=== PATIENT | male | born 1950 | race Caucasian/White ===

== ENCOUNTER → 2018-04-29 07:35 | Outpatient (CLI) | payer MEDICARE, OTHER, SELFPAY ==
--- NOTE | 2018-04-29 07:42 | DI.US.S_ITS ---
PROCEDURE: US ABD AORTA ANEURYSM SCREEN INDICATIONS: AAA SCREEN TECHNIQUE: Real time scanning was performed of the aorta and iliac arteries, with image documentation. COMPARISON: None. FINDINGS: Aorta: Proximal aortic diameter measures 2.2 cm. Mid-aorta measures 1.9 cm. Distal aortic diameter is 1.5 cm. Iliac arteries: Right common iliac artery measures 1.2 cm. Left common iliac artery measures 1.2 cm. IMPRESSION: No aneurysm found. No dissection identified. No atherosclerotic stenosis suspected within the aorta. Dictated by: Félix Galloway M.D. on 04/29/2018 at 8:09 Approved by: Félix Galloway M.D. on 04/29/2018 at 8:10
== END ==
PROVIDERS: PCP Family Medicine; Visit Provider Family Medicine
DX: Z13.6 Encounter for screening for cardiovascular disorders (principal)
CPT/HCPCS: 76706

== ENCOUNTER → 2020-05-28 16:51 | Outpatient (CLI) | payer MEDICARE, OTHER, SELFPAY ==
[2020-05-28] MEDS: COVID-19 VACC #1, MRNA(MOD) 100 MCG/0.5 ML VIAL IM (17:05)
== END ==
PROVIDERS: PCP Family Medicine; Visit Provider Internal Medicine
DX: Z23 Encounter for immunization (principal)
CPT/HCPCS: 0011A; 91301

== ENCOUNTER → 2020-06-26 11:02 | Outpatient (CLI) | payer MEDICARE, OTHER, SELFPAY ==
[2020-06-26] MEDS: COVID-19 VACC #2, MRNA(MOD) 100 MCG/0.5 ML VIAL IM (11:11)
== END ==
PROVIDERS: PCP Family Medicine; Visit Provider Internal Medicine
DX: Z23 Encounter for immunization (principal)
CPT/HCPCS: 0012A; 91301

== ENCOUNTER → 2020-08-22 09:06 | Outpatient (CLI) | payer MEDICARE, OTHER, SELFPAY ==
--- NOTE | 2020-08-22 | DI.ECHO.S_ITS ---
[facility] +---------+ [facility] +---------+ : : [address] : [address] : : : : [id number] : : : : Phone: [phone]+ Echocardiogram Report + + :Name: CAL GARCIA Study Date: 08/22/2020 Height: 69 in : :[facility] ReadingLocation: Weight: 150 lb : : Gender: Male BSA: 1.8 m2 : :: 1950 Age: 70 yrs BP: 122/74 mmHg: :Reason For Study: NEAR SYNCOPE : :Ordering Physician: ALIN, : :HECTOR Performed By: Demetra Howard : :Referring: HECTOR OGDEN : + + Interpretation Summary 1) Normal left ventricular thickness, size, wall motion, and systolic function (EF 55-60%). 2) Normal right ventricular size and function. 3) There is mild aortic regurgitation. 4) The aortic root is mildly dilated at 4.0cm. The ascending aorta is mildly enlarged at 4.1cm. 5) No prior Echo available for comparison. Procedure: A two-dimensional transthoracic echocardiogram with color flow and Doppler was performed. The study quality was technically adequate. There is no prior echocardiogram noted for this patient. The patient was in sinus rhythm with heart rates between 63-76 bpm during the exam. Left Ventricle: The left ventricle is normal in size and wall thickness. The ejection fraction is estimated to be 55-60%. Left ventricular systolic function appears normal without focal wall motion abnormalities. Diastolic parameters suggest probable normal left ventricular diastolic function and normal filling pressures. Right Ventricle: The right ventricle is normal in size and function. Atria: The left atrium is mildly dilated. Right atrial size is normal. There is no Doppler evidence for an interatrial shunt. Mitral Valve: The mitral valve is normal in structure and function. There is mild mitral regurgitation. Aortic Valve: The aortic valve is trileaflet. The aortic valve opens well. There is no aortic valve stenosis. There is mild aortic regurgitation. Tricuspid Valve: The tricuspid valve is normal in structure and function. The right ventricular systolic pressure is estimated to be at least 23 mmHg based on an estimated right atrial pressure of 3 mm Hg. There is mild tricuspid regurgitation. Pulmonic Valve: The pulmonic valve leaflets are thin and pliable; valve motion is normal. There is trace pulmonic regurgitation. Great Vessels: The aortic root is mildly dilated. The ascending aorta is mildly enlarged. The IVC is of normal diameter and collapses greater than 50% with a sniff. This suggests a low right atrial pressure of 3 mm Hg. Pericardium/ Pleura There is no pericardial effusion. There is no pleural effusion. MMode/2D Measurements & Calculations LVIDd: 4.9 cm LVOT diam: 2.5 cm LVIDs: 3.1 cm Ao root diam: 4.0 cm FS: 37.2 % asc Aorta Diam: 4.1 cm EPSS: 0.68 cm Ao Arch Diam (Prox Trans): 3.6 cm IVSd: 0.86 cm LVPWd: 0.81 cm LV phillips. diameter/BSA (cm/m^2): 2.7 LV sys. diameter/BSA (cm/m^2): 1.7 LA A2 area: 22.7 cm2 RA long axis: 5.0 cm LA A4 area: 14.6 cm2 RA area: 15.1 cm2 LA length (vol): 4.6 cm RA vol: 38.5 ml LA vol: 61.7 ml RA : 21.1 ml/m2 LA vol index: 33.8 ml/m2 IVC diam: 1.2 cm RVD1 (basal): 2.3 cm TAPSE: 1.9 cm Doppler Measurements & Calculations Ao V2 max: 136.6 cm/sec LVOT Max Darnell: 95.8 cm/sec Ao V2 mean: 90.7 cm/sec LV V1 max P.7 mmHg Ao max P.5 mmHg LV V1 VTI: 19.3 cm Ao mean P.7 mmHg RYLEE(I,D): 3.5 cm2 Ao V2 VTI: 26.4 cm RYLEE(V,D): 3.4 cm2 sev ratio: 0.73 RYLEE indexed to BSA (cm^2/m^2): 1.9 MV E max darnell: 62.5 cm/sec TR max darnell: 225.5 cm/sec MV A max darnell: 74.6 cm/sec TR max P.3 mmHg MV E/A: 0.84 PA V2 max: 108.3 cm/sec Med Peak E' Darnell: 9.8 cm/sec PA V2 mean: 80.7 cm/sec E/E' med: 6.4 PA mean P.8 mmHg Lat Peak E' Darnell: 8.4 cm/sec PA pr(Accel): 36.6 mmHg E/E' lat: 7.5 E/e' average: 6.9 MV dec time: 0.23 sec SV(LVOT): 93.4 ml Reading Physician:02:03 PM
== END ==
PROVIDERS: PCP Family Medicine; Referring Provider Family Medicine; Visit Provider Family Medicine
DX: I08.3 Combined rheumatic disorders of mitral, aortic and tricuspid valves (principal); I77.810 Thoracic aortic ectasia; R55 Syncope and collapse
CPT/HCPCS: 93306

== ENCOUNTER → 2020-09-17 09:02 | Outpatient (CLI) | payer MEDICARE, OTHER, SELFPAY ==
--- NOTE | 2020-09-17 | DI.RAD.S_ITS ---
PROCEDURE: FL BARIUM SWALLOW W SPEECH INDICATIONS: DYSPHAGIA COMPARISON: TECHNIQUE: Examination was conducted in conjunction with speech pathology per standard protocol. In the lateral projection, filming was performed of the patient swallowing. AP projection filming may also be performed with patient swallowing. COMPARISON: [facility], , ECHO DOPPLER COMPLETE, 08/22/2020, 9:20. FINDINGS: Function: The oral preparatory phase appears normal, with proper containment. The subsequent oral propulsive phase, pharyngeal phase, and esophageal phase of swallowing also appear normal with all proffered substances. No laryngotracheal penetration or aspiration. No pathologic vallecular pooling. There is mild obstruction of a calibrated barium pill at the GE junction. Morphology: No cricopharyngeal bar is identified. No cervical esophageal webs. No Zenker's diverticulum. No strictures. IMPRESSION: 1. No trachea laryngeal penetration or aspiration. Please see speech pathologist's report for detail. 2. Mild obstruction of a calibrated barium pill at the GE junction. A esophagram or upper endoscopy is suggested for follow-up. Dictated by: Leslye Garcia M.D. on 09/17/2020 at 10:25 Approved by: Leslye Garcia M.D. on 09/17/2020 at 10:26
--- NOTE | 2020-09-18 10:29 | ST.SWALLOW ---
Visit Care Team Role Provider Type Ronit Ellis MD Referring Provider Physician Specialty: [facility] Practice Address: [address] [place] [address], [place], [address] Email: [email or web address] Tatiana Barreto MD Attending Provider Physician Primary Care Provider Specialty: 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 Barreto Reason for Referral dysphagia Setting Setting Outpatient Care Patient Information Identification Type Name,Date of Patient History Pt was seen for a Modified Barium Swallow Study (MBSS) at the referral of Dr. Barreto. According to the pt, he has been experiencing difficulty with swallowing pills, popcorn hulls and dry foods/meats. Additionally, he reported a sensation of a meal remaining in his esophagus and filling up to the point he can't eat more food. This has occurred a few times over the past 5 years. He denied choking/ coughing, but did report that there are times things go down the wrong way. Subjective Observations Pt was seated in the fluoroscopy chair. Instructions and procedures were described for him. He indicated that he understood and agreed to proceed. Patient Positioning Position View Lat-A/P Imaging Lateral View Textures Administered Trials Presented Thin Liquid via Spoon,Thin Liquid via Cup,Pudding Thick Liquid via Spoon,Regular Textures Oral Phase Source: MBSIMP (TM) (C) Bolus Specific Scoring Grid Lip Closure WFL Tongue Control During Bolus Hold WFL Bolus Prep/Mastication WFL Bolus Transport/Lingual Motion WFL A/P Lingual Propulsion Delay No Oral Residue WFL Residue Clearing WFL Nasal Regurgitation No Additional Oral Phase Observations Structures were WFL for strength and mastication. Adequate dentition in good hygiene. Pharyngeal Phase Source: MBSIMP (TM) (C) Bolus Specific Scoring Grid Delayed Initiation of Pharyngeal Swallow No Soft Palate Elevation Mild Impairment Tongue Base Strength/Range of Motion Mild Impairment Residue Along the Tongue Base Yes Clearance of Residue Along Tongue Base Mild Impairment Laryngeal Elevation Mild Impairment Anterior Hyoid Movement Mild Impairment Epiglottic Range of Motion Mild Impairment Vallecular Residue Yes Clearance of Vallecular Residue Mild Impairment Laryngeal Vestibular Closure Mild Impairment Pharyngeal Stripping Wave Mild Impairment Posterior Pharyngeal Wall Residue Yes Clearance of Posterior Pharyngeal Wall Mild Impairment Residue Upper Esophageal Sphincter Opening Minimal Impairment Residue in the Pyriform Sinuses Yes Clearance of Residue in the Pyriform Mild Impairment Sinuses Esophageal Clearance Upright Position Minimal Impairment Pharyngoesophageal Backflow Observed No Additional Pharyngeal Phase Observations No laryngopharyngeal contact was made indicating tongue base and medial pharyngeal constrictor weakness. This limited the hyolaryngeal elevation and movement, thereby affecting the inversion of the epiglottis and the laryngeal seal. The epiglottis was noted to be horizontal for small bolus amounts. With larger bolus sizes, the epiglottis did invert; however the laryngeal seal was weak. Flash penetration was observed x4 into the laryngeal vestibule without residue. Pharyngeal pooling was observed at the tongue base, the valeculla, the pyriform sinuses, and the posterior pharyngeal wall. Subsequent swallows (dry) reduced but did not eliminate the pharyngeal pooling. No aspiration was observed. A/P View Textures Administered Trials Presented Thin Liquid via Cup,Regular Textures,Barium Tablet A/P View Observations Pharyngeal Contraction Minimal Impairment Residue Observed Valleculae Right,Valleculae Left,Pyriform Sinus Right, Pyriform Sinus Left Esophageal Function Slowed Clearing,Stasis Esophageal Clearance Upright Position Mild Impairment Additional Observations An esophageal screening was performed. Pharyngeal dysmotility and stasis of the tablet were observed. The tablet (11mm) remained at the LES for several seconds. Swallows of water and thin barium did not move the tablet , but went around it. The tablet eventually moved into the stomach. Clinical Impressions Dysphagia Type pharyngeal dysphagia; esophageal dysphagia Findings The pt presented with mild pharyngeal phase dysphagia. Based on the pt's description of his symptoms, is is likely that he is experiencing esophageal dysphagia with reduced motility and stasis at the LES delaying entry into the stomach. As he stated, he feels as though his esophagus is filling up, as he consumes foods such as dry meats or breads. GI referral is recommended for barium swallow to r/o stricture. * Finally, it should be noted that there appeared to be a small tear- shaped bulge of tissue, resembling a polyp, located on the anterior of the esophagus near the sternal area. This tissue seemed to be located outside of the esophagus and moved up and down with the esophagus across all trials. Patient Appropriate for Therapy No Recommendations Treatment Plan Recommended Referrals Primary Care Physician,GI Consult
== END ==
PROVIDERS: PCP Family Medicine; Referring Provider Student in an Organized Health Care Education/Training Program; Visit Provider Family Medicine
DX: R13.10 Dysphagia, unspecified (principal)
CPT/HCPCS: 74230; 92611

== ENCOUNTER → 2020-10-29 10:43 | Outpatient (CLI) | payer MEDICARE, OTHER, SELFPAY ==
[2020-10-29 14:12] LABS: COVID19 -Nasal RAPID Negative (Negative)
--- NOTE | 2020-10-29 15:24 | PM.TREADMILL ---
Cardiac Stress Test Report Referral & Results Date Patient Seen: 10/29/20 Time Patient Seen: 15:24 Requesting provider: Tatiana Barreto Indication: syncope and collapse Rest ECG: Sinus rhythm Procedure Note: Standard Hector protocol, 7:21, 8.1 METS Fair exercise capacity, DALLIN -3% Normal hemodynamic response to exercise No chest pain or anginal symptoms No significant ST changes at peak exercise Rare PVC Impression: Normal exercise stress test Please note: Actual ECG tracings can be found in the PACS system.
--- NOTE | 2020-10-29 18:59 | DI.NM.S_ITS ---
DATE OF SERVICE: PROCEDURE: Exercise perfusion study. DATE OF STUDY: October 29, 2020 INDICATIONS: Syncope, near-syncope, hyperlipidemia. RADIOPHARMACEUTICAL: 26.7 millicurie technetium-99m Myoview IV was injected at stress and 12.3 millicurie technetium-99m Myoview IV was injected at rest. CARDIAC STRESS: The patient underwent exercise perfusion study under the supervision of an attending staff. He exercised on Hector protocol for 7 minutes and 20 seconds, achieved 92% of target heart rate, normal blood pressure response, DALLIN -3% and 8.1 METS of workload. Baseline blood pressure 120/70 mmHg. Peak blood pressure 160/80 mmHg. Baseline EKG revealed sinus rhythm. During stress there were no convincing ischemic changes. Rare PVCs and PACs were seen. No chest pain or anginal symptoms. The patient felt fatigue. RAW DATA: There is increased subdiaphragmatic activity. GATED STUDY: Resting LV ejection fraction 73% and stress LV ejection fraction 63% without any obvious regional wall motion abnormalities. Resting end- diastolic volume 101 mL. TID ratio 1.24 which is abnormal. Lung/heart ratio 0.40, which is within normal limits. MYOCARDIAL PERFUSION SCAN: Stress supine, resting supine and stress prone images were compared to each other. Stress supine and resting supine images revealed small size, mildly decreased perfusion of inferior wall extending into the inferoapex, as well as basal inferior septum which got significantly resolved during prone images suggestive of tissue attenuation artifact. No convincing ischemia or infarction pattern. Based on perfusion scan. CONCLUSION: As far as perfusion scan is concerned, there is no significant perfusion defect during stress prone images. There was evidence of diaphragmatic attenuation artifact, which got resolved during prone images. The patient has good exercise tolerance. He walked on Hector protocol for 7 minutes and 21 seconds. No ischemic EKG changes. Normal hemodynamic response. No chest pain. However, the patient has abnormal transient ischemic dilatation. TID ratio 1.24 which is abnormal. Resting left ventricular ejection fraction 63%, which is less than resting ejection fraction of 73%. Transient ischemic dilatation represents left main or multivessel coronary artery disease. Balanced ischemia can cause normal myocardial perfusion. Correlate clinically and if pre test probability of coronary artery disease is high, consider left heart catheterization or CT coronary angiogram for further evaluation. Talat Montoya - CLAIM PROCESSING SPECIALIST/chele/cs doc#: [id number]/job#: [id number] dd: 10/29/2020 17:23:00 dt: 10/29/2020 18:49:00 DICTATING MD/COPIES TO: Brown Teixeira MD; Tatiana Barreto MD COPIES MNE: EILEEN;
== END ==
PROVIDERS: PCP Family Medicine; Referring Provider Family Medicine; Visit Provider Family Medicine
DX: R55 Syncope and collapse (principal); E78.5 Hyperlipidemia, unspecified
CPT/HCPCS: 78452; 87635; 93017; A9502

== ENCOUNTER → 2022-02-05 13:43 | Outpatient (CLI) | payer MEDICARE, OTHER, SELFPAY ==
--- NOTE | 2022-02-05 13:45 | DI.ECHO.S_ITS ---
[place] +---------+ Hospital +---------+ : : [address] : [address] : [address] : : : : [id number] : : : : Phone: [phone] +---------+ Echocardiogram Report + + :Name: CAL GARCIA Study Date: 02/05/2022 Height: 69 in : :[facility] ReadingLocation: Weight: 155 lb : : Gender: Male BSA: 1.9 m2 : :: 1950 Age: 71 yrs BP: 146/90 mmHg: :Reason For Study: Aortic, Ascending Aneurysm : :Ordering Physician: ALIN, : :HECTOR Performed By: Hang Lambert : :Referring: HECTOR OGDEN : + + Interpretation Summary The ejection fraction is estimated to be 55-60%. There is mild aortic regurgitation. The ascending aorta is mildly enlarged (4.4 cm, increased from 4.1 in 2020) Procedure: A two-dimensional transthoracic echocardiogram with color flow and Doppler was performed. The study quality was technically adequate. Comparison is made with the echocardiogram of 02/12/2021. The patient was in normal sinus rhythm during the exam. Left Ventricle: The left ventricle is normal in size and wall thickness. Left ventricular systolic function is normal. The ejection fraction is estimated to be 55-60%. There are no focal wall motion abnormalities. Diastolic parameters suggest probable normal left ventricular diastolic function and normal filling pressures. Right Ventricle: The right ventricle is normal in size and function. Atria: Both atria are normal in size. The interatrial septum grossly appears intact with no obvious evidence for an atrial septal defect. Mitral Valve: The mitral valve is normal in structure and function. There is mild mitral regurgitation. Aortic Valve: The aortic valve is normal in structure and function. There is mild aortic regurgitation. There is an eccentric jet of aortic insufficiency directed against the anterior mitral leaflet. Tricuspid Valve: The tricuspid valve is normal in structure and function. There is mild tricuspid regurgitation. The right ventricular systolic pressure is estimated to be at least 20 mmHg based on an estimated right atrial pressure of 3 mm Hg. Pulmonic Valve: The pulmonic valve is normal in structure and function. There is no pulmonic valvular regurgitation. Great Vessels: The aortic root is mildly dilated. The ascending aorta is mildly enlarged. The IVC is of normal diameter and collapses greater than 50% with a sniff. This suggests a low right atrial pressure of 3 mm Hg. Pericardium/ Pleura There is no pericardial effusion. There is no pleural effusion. MMode/2D Measurements & Calculations LVIDd: 5.2 cm LVOT diam: 2.1 cm LVIDs: 3.5 cm Ao root diam: 4.4 cm FS: 32.7 % asc Aorta Diam: 4.0 cm IVSd: 0.70 cm LVPWd: 0.80 cm LV phillips. diameter/BSA (cm/m^2): 2.8 LV sys. diameter/BSA (cm/m^2): 1.9 LA dimension: 2.7 cm RA long axis: 4.4 cm LA A2 area: 17.4 cm2 LA A4 area: 13.3 cm2 LA length (vol): 5.1 cm LA vol: 38.2 ml LA vol index: 20.6 ml/m2 TAPSE_phl: 3.0 cm Doppler Measurements & Calculations Ao V2 max: 114.0 cm/sec LVOT Max Darnell: 96.0 cm/sec Ao V2 mean: 80.6 cm/sec LV V1 max P.7 mmHg Ao max P.0 mmHg LV V1 VTI: 21.2 cm Ao mean P.0 mmHg RYLEE(I,D): 3.2 cm2 Ao V2 VTI: 22.7 cm RYLEE(V,D): 2.9 cm2 sev ratio: 0.93 RYLEE indexed to BSA (cm^2/m^2): 1.7 MV E max darnell: 66.0 cm/sec TR max darnell: 204.0 cm/sec MV A max darnell: 81.4 cm/sec TR max P.6 mmHg MV E/A: 0.81 Med Peak E' Darnell: 7.7 cm/sec E/E' med: 8.5 Lat Peak E' Darnell: 8.9 cm/sec E/E' lat: 7.4 E/e' average: 8.0 MV dec time: 0.29 sec SV(LVOT): 73.4 ml AV VR_phl: 0.84 RYLEE(VTI)/BSA_phl: 1.8 MV P1/2t-pr_phl: 85.0 msec Reading Physician:02:56 PM
== END ==
PROVIDERS: PCP Family Medicine; Referring Provider Family Medicine; Visit Provider Family Medicine
DX: I77.810 Thoracic aortic ectasia (principal); I08.3 Combined rheumatic disorders of mitral, aortic and tricuspid valves; I77.89 Other specified disorders of arteries and arterioles
CPT/HCPCS: 93306